=== PATIENT | female | born 1960 | race Caucasian/White ===

== ENCOUNTER → 2025-05-01 13:20 | Outpatient (BNVA) | payer OTHER, SELFPAY | PROVIDERS: Visit Provider Orthopaedic Surgery | DX: Z01.818 Encounter for other preprocedural examination (principal); M48.02 Spinal stenosis, cervical region; M54.12 Radiculopathy, cervical region; Z13.1 Encounter for screening for diabetes mellitus | CPT/HCPCS: 36415; 72050; 80053; 81001; 83036; 85025 ==

== ENCOUNTER 2025-05-14 05:50 | Day surgery (SDC) | payer OTHER, SELFPAY ==
--- NOTE | 2025-05-13 10:32 | ANES.PREANE2 ---
Pre-Anesthetic Assessment Height/Weight: Height 5 ft 5 in Preop Diagnosis: Cervical stenosis Operation Date: 05/14/25 07:00 Proposed Procedures p Cervical Decompression(Not Applicable) - Remi Greenberg, DO Was Beta Vika taken within 24 hours: N/A Was Clonidine taken within 24 hours: N/A Social No alcohol and No tobacco Exam alert, oriented x 3, clear to auscultation bilaterally and regular rate & rhythm Airway Submandibular: within normal limits Cervical ROM: within normal limits Mallampati: Class II Dentition: full Anesthetic Plan ASA status: 3 Anesthesia: General Other: No prior issues with anesthesia NPO since yesterday evening History of hypertension on losartan and HCTZ Hypothyroidism on Synthroid Type 2 diabetes on Mounjaro. Last taken 04/26/2025. Preop BS 131 Labs reviewed from 05/01/2025 and acceptable for procedure today UA at that time had 2+ bacteria but also contaminated with squamous epithelial cells Plan for GETA Medications/Allergies Home Medications ?Medication ?Instructions ?Recorded ?Confirmed ?Last Taken ?Type aspirin 81 mg tablet 81 mg PO DAILY 05/10/25 05/10/25 04/26/25 History atorvastatin 20 mg tablet 20 mg PO DAILY 05/10/25 05/10/25 05/10/25 History diclofenac sodium 1 % topical gel topical 05/10/25 05/10/25 History fenofibrate 150 mg capsule 150 mg PO DAILY 05/10/25 05/10/25 05/10/25 History fluoxetine 20 mg tablet 20 mg PO DAILY 05/10/25 05/10/25 05/10/25 History fluticasone fur. 100 mcg-umeclid 1 inh inhalation DAILY 05/10/25 05/10/25 05/10/25 History 62.5 mcg-vilant 25 mcg inhalat.powder (Trelegy Ellipta) hydrochlorothiazide 12.5 mg tablet 12.5 mg PO DAILY 05/10/25 05/10/25 05/10/25 History levothyroxine 175 mcg tablet 175 mcg PO DAILY 05/10/25 05/10/25 05/10/25 History losartan 100 mg tablet 100 mg PO DAILY 05/10/25 05/10/25 05/10/25 History potassium 75 mg tablet 50 mg PO DAILY 05/10/25 05/10/25 05/10/25 History tirzepatide 10 mg/0.5 mL 10 mg SUBCUT DIRECTED 05/10/25 05/10/25 04/26/25 History subcutaneous pen injector (Nikki) Allergies Allergy/AdvReac Type Severity Reaction Status Date / Time No Known Allergies Allergy Verified 05/10/25 12:21 [facility] Anesthesia Social History Smoking and tobacco/nicotine status: never used tobacco/nicotine
[2025-05-14] VITALS (17 sets, daily range): BP systolic 99–141; BP diastolic 40–79; PULSE 68–83; RESP 12–18; TEMP 36.1–36.4; O2SAT 91–96; BMI 29.9
--- NOTE | 2025-05-14 05:48 | SC_ITS ---
WS: [id number] C-ARM RADIOGRAPHS CERVICAL SPINE; 2 IMAGES HISTORY: Surgery COMPARISON: None available. Limited imaging during spine surgery. Marker over the LEFT cervical thoracic junction. Patient does appear to be intubated. SC/C-arm Fluoroscopy 63140 IMPRESSION: Intraoperative imaging during cervical spine surgery.
[2025-05-14] MEDS: ceFAZolin 2,000 mg SDV 2000 MG IVP (07:04)
[2025-05-14] MEDS: lidocaine-epi 1% 20 mL INJ INJECTION (07:55)
--- NOTE | 2025-05-14 08:09 | W.PM.OPSUD ---
Surgery/Procedure H&P Update DATE OF PROCEDURE: May 14, 2025 DATE H&P PERFORMED: 05/01/25 H&P UPDATE INFORMATION: I have reviewed H&P completed within last 30 days, I have examined patient prior to procedure and No changes to prior documentation PREOP DIAGNOSIS: Cervical stenosis PLANNED PROCEDURE: Operation Date: 05/14/25 07:00 Proposed Procedures p Cervical Decompression(Not Applicable) - Remi Greenberg DO
--- NOTE | 2025-05-14 08:12 | PM.OP ---
Operative Report Date of procedure: May 14, 2025 Pre-op diagnosis: Cervical stenosis with radiculopathy Post-op diagnosis: same Procedure done: C5/6 laminectomy with partial facetectomy and foraminotomy Surgeon: Remi Greenberg DO Estimated blood loss (mL): 5 Procedure: C5/6 laminectomy partial facetectomy and foraminotomy Patient is brought to the operative suite. After undergoing anesthesia they are placed in the prone position. All areas of impingement are well padded. Patient is then prepped and draped in the normal sterile fashion. A skin incision is made over the C5/6 level. This is confirmed under c-arm guidance. A series of dilators are passed and the tubular retractor is docked on the C5 lamina. A bovie is used to clear the soft tissue off the lamina and the C5/6 facet joint. A high speed teresita is then used to perform the laminectomy and take down the medial aspect of the C5/6 facet joint. A kerrison rongeure was then used to take down the remaining lamina and smooth the edge of the laminectomy up to the point where the ligamentum flavum attaches. Attention was then brought to the medial aspect of the facet joint. The remaining medial aspect of the superior and inferior aspect of the facet joint were taken down with the kerrison from the pedicle of C5 to C6. The facet joint had significant hypertrophy. Attention was then brought to the Ligamentum Flavum. The ligament was taken down from the lamina of C5 to C6 and out medially to the remaining facet joint. The ligament was thick. The dura was then exposed. The dura was in good repair. The C6 nerve was then traced with a curette out the C5-6 foramen and found to be adequately decompressed. The C7 nerve was traced with a curette around the C7 pedicle. The lateral recess was opened with a kerrison helping to further decompress the C7 nerve. Wound is then irrigated copiously with saline and surgiflo is used to stop any bleeding. The tubular retractor is removed and the wound is closed with vicryl and monocryl suture. Steri strips were applied. A sterile dressing is then placed. Patient was then placed in the supine position and transferred to the PACU in stable condition.
[2025-05-14] MEDS: fentaNYL 50 mcg/mL INJ 2mL IVP ×2 (08:31→08:37)
[2025-05-14] MEDS: morphine 4 mg/mL SDV 1 mL 2 MG IVP ×2 (08:45→08:59)
[2025-05-14] MEDS: HYDROcodone-acetaminophen 5-325 mg Tablet 1 TAB PO (09:18)
--- NOTE | 2025-05-14 09:35 | PC.NURSE ---
Soft collar from OR was too big. Soft Collar ordered from PT arrived and was too small. PT called again verbalized that they were sending a soft collar a size bigger. PACU nurse and PREOP nurse informed.
--- NOTE | 2025-05-14 10:20 | ANE.PACU2 ---
Inpatient post-anesthesia follow up: Airway intact: Yes Vital signs: Temperature 97.5 F Pulse Rate 68 Respiratory Rate 16 Blood Pressure 106/77 Pulse Oximetry 94 Oxygen Delivery Me thod Room Air Oxygen Flow Rate Fraction of Inspir ed Oxygen Hydration adequate: Yes Nausea and vomiting: No Pain level: 1 Mental status: Baseline
== END 2025-05-14 10:20 | disposition home or self-care (01) ==
PROVIDERS: Visit Provider Orthopaedic Surgery
PROC: (CPT 63001; principal; 2025-05-14 07:00)
DX: M48.02 Spinal stenosis, cervical region (principal); I10 Essential (primary) hypertension; E03.9 Hypothyroidism, unspecified; E11.9 Type 2 diabetes mellitus without complications; Z79.82 Long term (current) use of aspirin
CPT/HCPCS: 63045; 36416; 72020; 76000; 82962; A4649; J0690; J2250; J2270; J2371; J2704; J3010; J3490; J7030; J9999